=== PATIENT | female | born 1965 | race Caucasian/White ===

== ENCOUNTER 2018-05-17 13:03 | Emergency (ER) | payer SELFPAY ==
[2018-05-17] MEDS: ACETAMINOPHEN 325 MG TAB PO (14:30)
[2018-05-17 14:34] LABS: URINE BLOOD (Dip) POC 2+ (NEGATIVE); URINE GLUCOSE (Dip) POC Negative (NEGATIVE); URINE KETONES (Dip) POC Negative (NEGATIVE); URINE LEUKOCYTE EST (Dip) POC Trace (NEGATIVE); URINE NITRITE (Dip) POC Negative (NEGATIVE); URINE TOTAL PROTEIN POC Negative (NEGATIVE)
[2018-05-17 14:34] LABS: URINE PH (Dip) POC 6.5 (5.0-8.5)
== END 2018-05-17 17:05 | disposition left against medical advice (07) ==
LOC: FTE 13:03
DX: M25.512 Pain in left shoulder (principal); M54.5 Low back pain
CPT/HCPCS: 81003; 81025; 99283